=== PATIENT | female | born 2000 | race Two or more races ===

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

== ENCOUNTER 2020-10-19 19:47 | Emergency (ER) | payer MEDICAID, OTHER ==
[~2020-10-19] VITALS: Ht 160 cm; Wt 83.9 kg
[2020-10-19 19:50] VITALS: BP 159/89
== END 2020-10-19 21:04 | disposition home or self-care (01) ==
LOC: ER 19:47
DX: N64.52 Nipple discharge (principal); J45.909 Unspecified asthma, uncomplicated